=== PATIENT | male | born 1985 | race Caucasian/White ===

== ENCOUNTER 2020-11-27 09:00 | Emergency (ER) | payer SELFPAY ==
[2020-11-27 09:08] VITALS: BP 135/83; PULSE 110; RESP 18; TEMP 36.5; O2SAT 100; BMI 31.9
[2020-11-27 09:16] VITALS: BP 135/83; PULSE 100; O2SAT 100
--- NOTE | 2020-11-27 09:18 | XR_ITS ---
WS: [id number] Left ankle, 3 views, 11/27/2020 Clinical Data: post fracture ER visit Comparison: None. Findings: There is a fracture of the distal left fibula. There is an oblique fracture of the left medial malleo zahra. There is lateral displacement of the talus. There is soft tissue swelling about the medial and lateral malleolar. XR/XR ankle LT min 3V* [id number] Impression: Bimalleolar fracture of left ankle.
--- NOTE | 2020-11-27 09:18 | W.ED.EXTPRO ---
HPI - Extremity Problem General: Chief complaint: Extremity Injury, Lower Stated complaint: L LEG INJURY Time Seen by Provider: 11/27/20 09:01 History of Present Illness: HPI Narrative: Patient states he needs an appointment with the orthopedic doctor to get his ankle fracture fixed. Patient states he was in [place] 8 days ago was taken upstairs ankle fracture sedated reduction was done and told he need to have surgery on his ankle. Patient did not want to go back to [place] for surgery and so he presents here to get orthopedic appointment. Complaint: extremity pain Onset (ago): day(s) Pain Consistency: now resolved Location: left and lower extremity Associated symptoms: Deny fever(s) Context: other (Posterior splint is in place with Wilfrido wrap to the left lower extremity) Review of Systems Const: Denies: fever(s) or chills Musc: Reports: extremity pain (Left ankle with posterior splint in place fractured 8 days ago) Psych: Denies: anxiety Physical Exam Const: COMMON NORMALS: no acute distress Extremity: OTHER: Has OCL splint in place with Wilfrido wrap. OCL splint and padding was removed review on a very swollen ankle with mild bruising and couple small blisters Psych: COMMON NORMALS: mental status grossly normal Skin: NARRATIVE SKIN EXAM: Patient does have to the medial aspect of the ankle bruising down the lower aspect along the base of the foot does have little blistering at the top above the fracture site probably 1 to 2 mm blisters to open moderate swelling Course Vital Signs: Vital signs: Vital Signs Temperature 97.7 F 11/27/20 09:08 Pulse Rate 100 11/27/20 09:16 Respiratory Rate 18 11/27/20 09:08 Blood Pressure 135/83 11/27/20 09:16 Pulse Oximetry 100 11/27/20 09:16 MDM - Extremity (Nontraumatic) MDM Narrative: Medical decision making narrative: I consulted with Dr. Freitas who consulted with Dr. Bermudez because patient requested Dr. Lund if at all possible. Dr. Lund agreed to see patient after his visit here in ER and patient will go directly over to orthopedic clinic. And will be scheduled for surgery on Tuesday. Sugar tong and posterior fiberglass cast is requested per Dr. Freitas. That was placed patient was discharged to orthopedic clinic from here. Patient does have crutches that he is using. Discharge Plan Discharge Condition: Stable Coding Level of Care Code ED [employer] Consultant for Chg Fwd Exam Expanded Problem Focused
[2020-11-27] MEDS: HYDROcodone-acetaminophen 5-325 mg Tablet 1 TAB PO (09:53)
[2020-11-27 10:15] VITALS: BP 147/89; PULSE 96; O2SAT 97
[2020-11-27 10:38] LABS: SARS Covid-2 Antigen Negative (Negative)
--- NOTE | 2020-11-28 10:41 | DCPLANNER ---
mountain services manager had message to schedule a follow up appointment for patient with ortho - patient was to go directly to the ortho clinic after discharging from the ER. Patient was seen at the ortho clinic.
== END 2020-11-27 10:15 | disposition home or self-care (01) ==
PROVIDERS: Emergency Provider Nurse Practitioner Family
DX: S82.892A Other fracture of left lower leg, initial encounter for closed fracture (principal); X58.XXXA Exposure to other specified factors, initial encounter
CPT/HCPCS: 29515; 73610; 87426; 99283

== ENCOUNTER 2020-12-01 07:42 | Day surgery (SDC) | payer SELFPAY ==
[2020-12-01] VITALS (14 sets, daily range): BP systolic 118–143; BP diastolic 83–99; PULSE 83–106; RESP 12–19; TEMP 36.1–36.4; O2SAT 92–99; BMI 31.9
--- NOTE | 2020-12-01 | SCC_ITS ---
Procedure: ORIF Left Bimalleolar ankle fracture 64.6 seconds of fluoroscopic guidance, for a cumulative dose of 2.12 mGy, was provided to Dr. Lund by the radiology department. C-arm images of the LEFT ankle were saved for the patient's permanent record. [facility]
--- NOTE | 2020-12-01 | XR_ITS ---
WS: [id number] INTRAOPERATIVE TECHNIQUE: 4 Spot fluoroscopic images for intraoperative purposes. FLUOROSCOPY TIME: 64.6 seconds CLINICAL INFORMATION: right ankle bimalleolar fracture COMPARISON: None. FINDINGS: Intraoperative changes plate and screw fixation distal fibula and lateral malleolus. Screw fixation a cross the medial malleolus. XR/XR ankle LT min 3V* [id number] IMPRESSION: Images obtained for intraoperative purposes.
[2020-12-01] MEDS: sodium chloride 0.9% 1,000 ML 30 ML IV (08:27)
[2020-12-01] MEDS: fentaNYL 50 mcg/mL INJ 2mL IVP (08:42)
--- NOTE | 2020-12-01 09:09 | ANES.PREANE2 ---
Pre-Anesthetic Assessment Pre-Anesthetic Assessment: Height/Weight: Height 1.73 m Weight 95.254 kg Temp Pulse Resp BP Pulse Ox 97.0 F L 83 18 120/83 99 12/01/20 08:14 12/01/20 08:14 12/01/20 08:42 12/01/20 08:14 12/01/20 08:42 Preop Diagnosis: left ankle fracture Proposed Procedure: Operation Date: 12/01/20 10:00 Proposed Procedures p ORIF Ankle(Left) - Ralph H Ashely, DO Was Beta Ronaldo taken within 24 hours: N/A Was Clonidine taken within 24 hours: N/A Last intake: Intake Last Liquid Date 11/30/20 Last Liquid Time 20:00 Last Solid Date 11/30/20 Last Solid Time 20:00 Social: Social History: Tobacco and No alcohol Exam: Pre-Anes Outpt Exam: alert, oriented x 3, clear to auscultation bilaterally and regular rate & rhythm Airway: Submandibular: WNL Cervical ROM: WNL MP: 2 Dentition: Chipped Pulmonary: Pulmonary: COPD Anesthetic Plan: ASA status: 2 Anesthesia: General Risk of > 500 ml blood loss (7ml/kg in children): No Meds/Allergies Current Medications: Current Medications Generic Name Dose Route Start Last Admin Trade Name Freq PRN Reason Stop Dose Admin Fentanyl 50 mcg 12/01/20 07:51 12/01/20 08:42 Fentanyl 50 Mcg/ Ml Inj 2ml IVP 50 mcg Q10M PRN Administration Preop Pain Sodium Chloride 1,000 mls @ 30 ml s/hr 12/01/20 08:00 12/01/20 08:27 Sodium Chloride 0.9% IV 12/02/20 07:59 30 mls/hr .Q24H ARUN Administration Data Anesthesia Cardiac Studies: No Data to Display
--- NOTE | 2020-12-01 10:07 | W.PM.OPSUD ---
Surgery/Procedure H&P Update DATE OF PROCEDURE: December 01, 2020 DATE H&P PERFORMED: 11/27/20 H&P UPDATE INFORMATION: I have reviewed H&P completed within last 30 days, I have examined patient prior to procedure and No changes to prior documentation PREOP DIAGNOSIS: left ankle fracture PLANNED PROCEDURE: Operation Date: 12/01/20 10:00 Proposed Procedures p ORIF Ankle(Left) - Ralph Lund DO
[2020-12-01] MEDS: ceFAZolin 1,000 mg SDV 1000 MG IVP (10:15)
--- NOTE | 2020-12-01 11:19 | PM.OP ---
Operative Report Date of procedure: December 01, 2020 Pre-op Diagnosis: left ankle fracture bimalleolar Post-op diagnosis: same Post-op Findings: ORIF left bimalleolar ankle fracture Surgeon: Ralph Lund Anesthesia: General Estimated blood loss (mL): 5 Tourniquet time (min): 45 Condition: stable Disposition: PACU Procedure: ORIF Left Bimalleolar ankle fracture Patient was brought to the operative suite after undergoing anesthesia patient was positioned on the table all areas impingement well-padded. Leg was then prepped and draped in normal sterile fashion. Skin incision is made over the fibula first. The fracture was identified. Patient did have some early callus formation at this point since his at least 2 weeks out from the injury. This was taken down with rongeur and elevators. Fracture was then reduced. And a Sarah lateral fibular plate was placed. Screws were placed distal and proximal to the fracture. Fluoroscopy ensured that the hardware was improved position as was the fracture. Extends brought to the medial malleolus skin sutures made over the medial malleolus the fracture was identified again callus was taken down with rongeur. Fracture was then reduced and 2 partially-threaded cannulated screws were placed holding the fracture reduced. AP lateral and mortise view x-rays show ensured that the hardware and fracture were in good position. Wounds were irrigated and closed with Vicryl and nylon suture. Sterile dressings were applied and patient was placed in a posterior splint and transferred to the PACU in stable condition.
[2020-12-01] MEDS: fentaNYL 50 mcg/mL INJ 2mL 100 MCG IVP (11:37)
[2020-12-01] MEDS: HYDROmorphone 1 mg/mL INJ 1 mL 0.5 MG IVP ×3 (11:46→12:08)
[2020-12-01] MEDS: ketorolac 30 mg/mL INJ IVP (11:58)
--- NOTE | 2020-12-01 15:38 | ANE.PACU2 ---
Inpatient post-anesthesia follow up: Airway intact: Yes Vital signs: Temperature 97.6 F Pulse Rate 91 Respiratory Rate 14 Blood Pressure 143/97 Pulse Oximetry 96 Oxygen Delivery Me thod Room Air Oxygen Flow Rate Fraction of Inspir ed Oxygen Hydration adequate: Yes Nausea and vomiting: No Pain level: 3 Mental status: Baseline
== END 2020-12-01 12:50 | disposition home or self-care (01) ==
PROVIDERS: Visit Provider Orthopaedic Surgery
PROC: (CPT 27814; principal; 2020-12-01 09:50)
DX: S82.842A Displaced bimalleolar fracture of left lower leg, initial encounter for closed fracture (principal); X58.XXXA Exposure to other specified factors, initial encounter; J44.9 Chronic obstructive pulmonary disease, unspecified
CPT/HCPCS: 27814; 73610; 76000; C1713; J0690; J1170; J1885; J2405; J2704; J3010; J3490; J7030

== ENCOUNTER → 2020-12-23 10:54 | Outpatient (BNVA) | payer SELFPAY | PROVIDERS: Visit Provider Orthopaedic Surgery | DX: S82.842A Displaced bimalleolar fracture of left lower leg, initial encounter for closed fracture (principal); X58.XXXA Exposure to other specified factors, initial encounter; Z48.89 Encounter for other specified surgical aftercare | CPT/HCPCS: 73610 ==

== ENCOUNTER 2020-12-23 11:17 | Outpatient (CLI) | payer SELFPAY | END 2020-12-23 11:18 | disposition home or self-care (01) | LOC: SPT 11:20 | PROVIDERS: Visit Provider Orthopaedic Surgery | DX: Z46.89 Encounter for fitting and adjustment of other specified devices (principal); S82.842D Displaced bimalleolar fracture of left lower leg, subsequent encounter for closed fracture with routine healing; X58.XXXD Exposure to other specified factors, subsequent encounter | CPT/HCPCS: 97760; L4361 ==

== ENCOUNTER → 2021-04-28 10:18 | Outpatient (BNVA) | payer SELFPAY | PROVIDERS: Visit Provider Orthopaedic Surgery | DX: S82.842A Displaced bimalleolar fracture of left lower leg, initial encounter for closed fracture (principal); Z48.89 Encounter for other specified surgical aftercare; X58.XXXA Exposure to other specified factors, initial encounter | CPT/HCPCS: 73610 ==

== ENCOUNTER → 2021-06-04 11:29 | Outpatient (BNVA) | payer SELFPAY | PROVIDERS: Visit Provider Orthopaedic Surgery | DX: Z20.822 Contact with and (suspected) exposure to COVID-19 (principal); S82.843A Displaced bimalleolar fracture of unspecified lower leg, initial encounter for closed fracture; X58.XXXA Exposure to other specified factors, initial encounter | CPT/HCPCS: 87635 ==

== ENCOUNTER 2021-06-10 06:31 | Day surgery (SDC) | payer SELFPAY ==
[2021-06-08 11:36] VITALS: BMI 34.2
--- NOTE | 2021-06-08 12:06 | ANES.PREANE2 ---
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 Exam: Pre-Anes Outpt Exam: alert, oriented x 3, clear to auscultation bilaterally and regular rate & rhythm Airway: Submandibular: WNL Cervical ROM: WNL MP: 2 Dentition: Chipped History/ROS: No significant history except as noted and No significant complaints Metabolic: Metabolic: Morbid obesity Anesthetic Plan: ASA status: 2 Anesthesia: Anesthesia Evaluation and General Risk of > 500 ml blood loss (7ml/kg in children): No PFSH Anesthesia PFSH: Social History Smoking and tobacco status: current every day smoker (1 pack ) Data Anesthesia Cardiac Studies: No Data to Display
[2021-06-10] VITALS (8 sets, daily range): BP systolic 88–145; BP diastolic 64–104; PULSE 80–100; RESP 15–19; TEMP 36.2–36.8; O2SAT 92–98
--- NOTE | 2021-06-10 | SCC_ITS ---
Procedure Done: 1. ORIF Left medial malleolus nonunion 2. Removal of hardware from the Left fibula and medial malleolus 40.8 seconds of fluoroscopic guidance, for a cumulative dose of 1.37 mGy, was provided to Dr. Lund by the radiology department. C-arm images of the LEFT tibia fibula were saved for the patient's permanent record. [facility]
--- NOTE | 2021-06-10 | XR_ITS ---
WS: [id number] Exam: XR tibia fibula LT 2V [id number] Date/Time of Exam: 06/10/2021 12:00 AM Reason For Exam: hardware removal and replacement Comparison 12/01/2020. C-arm images in the AP and lateral projections are submitted for evaluation. Previously noted cortical plate and screws have been removed from the lower fibula. There is a healed fracture of the lower fibula. 2 screws stabilizing a fracture of the medial malleolus have also been replaced. The medial malleolar fracture does not appear to be completely healed. No other fractures are seen. Medial soft tissue swelling. XR/XR tibia fibula LT 2V [id number] IMPRESSION: 1. Removal of the plate and multiple screws from the lower fibula. 2. 2 screws stabilizing the fractured medial malleolus appear to have been repl aced. The medial malleolar fracture does not appear to be completely healed. Al ignment appears satisfactory.
--- NOTE | 2021-06-10 06:49 | PC.NURSE ---
Dr. Lund notified that patient was complaining of severe tooth pain that started last night. Plan to continue with surgery.
[2021-06-10] MEDS: HYDROmorphone 1 mg/mL INJ 1 mL 0.5 MG IVP ×2 (07:11→07:47)
[2021-06-10] MEDS: sodium chloride 0.9% 1,000 ML 30 ML IV (07:11)
[2021-06-10] MEDS: ondansetron 2 mg/ML SDV 2 mL 4 MG IVP (07:16)
--- NOTE | 2021-06-10 07:18 | P.ANESUD_ITS ---
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(Not Applicable) - Ralph Lund, DO Any changes to Pre-Anesthetic Assessment?: No Last Intake: Intake Last Liquid Date 06/09/21 Last Liquid Time 22:00 Last Solid Date 06/09/21 Last Solid Time 22:00 Vitals: Temperature 98.2 F 06/10/21 06:40 Temperature Source Temporal Artery S can 06/10/21 06:40 Pulse Rate 80 06/10/21 06:40 Pulse Rhythm 06/10/21 07:03 Pulse Strength 3+ Normal 06/10/21 07:03 Respiratory Rate 19 H 06/10/21 06:40 Blood Pressure 145/104 06/10/21 06:40 Blood Pressure Kimber n 117 06/10/21 06:40 Pulse Oximetry 98 06/10/21 06:40 Oxygen Delivery Me thod 06/10/21 07:03 Exam: Pre-Anes Outpt Exam: alert, oriented x 3, clear to auscultation bilaterally and regular rate & rhythm Cardiac Studies: No Data to Display
--- NOTE | 2021-06-10 08:01 | W.PM.OPSUD ---
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
--- NOTE | 2021-06-10 08:02 | PM.HP ---
Providers/Chief Complaint Chief Complaint: hardware removal History of Present Illness Malik Navas is a 35 year old male patient here for post operative follow up of his ORIF left bimalleolar ankle fracture. DOS: 12/01/20 he is 5 months post operative. He complains of pain to his lateral ankle and feels a screw is coming out. He has been using a soft brace. He states after surgery he went to correction. He states while in correction he did not wear the CAM boot. He rates his pain 2/10. Review of Systems Narrative: General ROS: negative for weight changes, fever ENT ROS: negative for nasal congestion, drainage or bleeding, sore throat, dysphagia or ear pain Eyes: PERRL Hematological and Lymphatic ROS: negative for swollen glands or abnormal bleeding Endocrine ROS: negative for polyuria/polydpsia or new changes in weight Respiratory ROS: negative for cough, shortness of breath, or wheezing Cardiovascular ROS: negative for chest pain or dyspnea on exertion Gastrointestinal ROS: negative for reflux, abdominal pain, change in bowel habits, or black or bloody stools Musculoskeletal ROS: negative for back pain, neck pain, or joint pain or swelling except for current problem Neurological ROS: negative for TIA or stoke symptoms Skin: no rashes Medications/Allergies Home Medications Medication Instructions Recorded Confirmed Last Taken Type No Known Home Medications 06/10/21 06/10/21 Unknown History Allergies Allergy/AdvReac Type Severity Reaction Status Date / Time amoxicillin [From Augmentin] Allergy Unknown Verified 06/08/21 11:34 clavulanic acid Allergy Unknown Verified 06/08/21 11:34 [From Augmentin] codeine Allergy Unknown Verified 06/08/21 11:34 PFSH Acute PFSH: Social History Smoking and tobacco status: current every day smoker (1 pack ) Vitals/I&O/Wt Last Vital Signs Temp 98.2 F 06/10/21 06:40 Pulse 80 06/10/21 06:40 Resp 19 H 06/10/21 06:40 BP 145/104 06/10/21 06:40 Pulse Ox 98 06/10/21 06:40 Weight last 48 hrs Weight 225 lb Physical Exam Narrative: EXAM NARRATIVE: CONSTITUTIONAL: The patient is a normal appearing [] in no apparent distress. GENERAL: Patient in no acute distress. CARDIAC: Regular rate and rhythm. CHEST: Normal inspiratory effort, normal respiratory rate. ABDOMEN: Soft and nontender. SKIN: Clear, warm and intact. NEURO?PSYCH: The patient is alert and oriented to person, place and time. Sensorv /SILT Motor StrengthShoulder abduction C5 5/5Wrist extension C6 5/5Elbow extension C7 5/5Hand Department Sales Manager C8 5/5Finger abduction T15/5 Radial/ Ulnar/ Median n intact LowerSensory (SILT)Motor StrengthHin flexion L2/3Ant/inner thigh 5/5Hip adduction L2/3 5/5Knee extension L4 Lat thigh, 5/5Toe dorsiflexion L5 5/5Ankle dorsiflexion L5/ D26Rhofmag flexion S1 5/5 DTRBleeps 2+Triceps 2+Brachioradialis 2+Patellar 2+Achilles 2+ MUSCULOSKELETAL: [] UPPEREXTREMITIES: The patient had full active ROM in fingers, wrist, elbow, and shoulder. The patient demonstrated ability to fully flex/extend/abduct/adduct fingers, make ok sign, cross 2nd/3rd digits, extend 1st digit fully.. Radial pulse 2+, CR<2 seconds. LOWER EXTREMITIES: Pt has full, active ROM of toes, ankle, knee, and hip. Dorsalis pedis/posterior tibialis pulses 2+, CR<2 seconds. SPINE: Skin warm, dry, intact. A&P Assessment and plan (1) Ankle fracture, bimalleolar, closed: nonunion medial malleolus Status: Acute Attestations Medical Necessity Statement*: failed conservative tx Coding Level of Care Code Acute Supervisor [employer] for [facility] Diagnoses Ankle fracture, bimalleolar, closed S82.848E
--- NOTE | 2021-06-10 09:35 | P.OP_ITS ---
Operative Report Date of procedure: June 10, 2021 Pre-op Diagnosis: Painful hardware; medial malleolus nonunion Post-op diagnosis: same Procedure Done: 1. ORIF Left medial malleolus nonunion 2. Removal of hardware from the Left fibula and medial malleolus Surgeon: Ralph Lund Highway Commissioner: Jaime Mitchell Highway Commissioner: Jaime REYNOLDS was required to for expertise in helping treat the nonunion by localizing screws while I removed them. He helped with positioning the patient an retraction and suction and closure of the wound as well as putt ing patient in a splint. Anesthesia: General Estimated blood loss (mL): 5 Condition: stable Disposition: PACU Procedure: 1. ORIF Left medial malleolus nonunion 2. Removal of hardware from the Left fibula and medial malleolus Patient was brought to the operative suite after undergoing anesthesia was placed on the operating room table in the supine position. All areas impingement were well-padded. Skin incision was made over the fibula using previous skin incision. The plate was identified and screws removed plate was removed. Next attention was brought to the medial side. He is in the previous skin incision the is incision was opened and the wound was was opened and the any fracture nonunion site was identified. The previous screws were identified and removed. The fracture (nonunion site) was decorticated with a drill and 2 lag screws were placed using a 3.5 drill followed by 2.5 drill and 2 3.5 cortical screws from [place] were used to compress the fracture site. The screws were started at the tip of the medial malleolus and drilled all the way across bicortically to the lateral aspect of the tibia. And then DBX was packed into the fracture site. In order to facilitate healing of the nonunion site. Wounds were irrigated and closed with Vicryl and nylon suture. Sterile dressings were applied patient was placed in a posterior splint and transferred to the PACU in stable condition.
--- NOTE | 2021-06-10 09:48 | P.PCN_ITS ---
PACU note PACU note: VSS, Good respiratory effort, report to RESIDENT INSPECTOR Post-Anesthesia Exam: awake
--- NOTE | 2021-06-10 09:48 | PM.PACU ---
PACU note PACU note: VSS, Good respiratory effort, report to GRILL ASSOCIATE Post-Anesthesia Exam: awake
[2021-06-10] MEDS: HYDROcodone-acetaminophen 5-325 mg Tablet 2 TAB PO (10:17)
--- NOTE | 2021-06-10 15:52 | ANE.PACU2 ---
Inpatient post-anesthesia follow up: Airway intact: Yes Vital signs: Temperature 98.3 F Pulse Rate 86 Respiratory Rate 18 Blood Pressure 121/76 Pulse Oximetry 96 Oxygen Delivery Me thod Room Air Oxygen Flow Rate Fraction of Inspir ed Oxygen Hydration adequate: Yes Nausea and vomiting: No Pain level: 3 Mental status: Baseline
== END 2021-06-10 10:53 | disposition home or self-care (01) ==
PROVIDERS: Visit Provider Orthopaedic Surgery
PROC: (CPT 20680; principal; 2021-06-10 08:00)
PROC: (CPT 20680; 2021-06-10 08:00)
DX: T84.84XA Pain due to internal orthopedic prosthetic devices, implants and grafts, initial encounter (principal); S82.52XA Displaced fracture of medial malleolus of left tibia, initial encounter for closed fracture; X58.XXXA Exposure to other specified factors, initial encounter; F17.210 Nicotine dependence, cigarettes, uncomplicated; Y79.1 Therapeutic (nonsurgical) and rehabilitative orthopedic devices associated with adverse incidents
CPT/HCPCS: 20680; 27720; 73590; 76000; C1713; J0690; J1170; J2250; J2405; J2704; J3010; J7030

== ENCOUNTER → 2021-07-02 10:29 | Outpatient (BNVA) | payer SELFPAY | PROVIDERS: PCP Family Medicine; Visit Provider Orthopaedic Surgery | DX: S82.52XK Displaced fracture of medial malleolus of left tibia, subsequent encounter for closed fracture with nonunion (principal); X58.XXXD Exposure to other specified factors, subsequent encounter; Z98.890 Other specified postprocedural states | CPT/HCPCS: 73590 ==

== ENCOUNTER → 2021-07-23 09:59 | Outpatient (BNVA) | payer SELFPAY | PROVIDERS: PCP Family Medicine; Visit Provider Orthopaedic Surgery | DX: S82.52XK Displaced fracture of medial malleolus of left tibia, subsequent encounter for closed fracture with nonunion (principal); X58.XXXD Exposure to other specified factors, subsequent encounter | CPT/HCPCS: 73610 ==

== ENCOUNTER → 2021-09-08 14:29 | Outpatient (BNVA) | payer SELFPAY | PROVIDERS: PCP Family Medicine; Visit Provider Orthopaedic Surgery | DX: S82.52XK Displaced fracture of medial malleolus of left tibia, subsequent encounter for closed fracture with nonunion (principal); X58.XXXD Exposure to other specified factors, subsequent encounter | CPT/HCPCS: 73610 ==